=== PATIENT | female | born 1990 | race Caucasian/White ===

== ENCOUNTER 2016-11-26 14:25 | Emergency (ER) | payer MEDICAID ==
[~2016-11-26] VITALS: Ht 170.2 cm; Wt 65.0 kg
[~2016-11-26 14:25] MED LIST: DOXY100T PO; OXCA600 PO; SULF-154 PO; VENL-39; ZIPR1CAP27 PO
[2016-11-26 14:30] VITALS: BP 124/75; PULSE 70; RESP 16; TEMP 98.3; O2SAT 99
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
[2016-11-26] MEDS ORDERED: SODIUM CHLORIDE 0.9% FLUSH 10 ML FLUSH IVF PRN (15:15)
--- NOTE | 2016-11-26 15:52 | RADRPT ---
EXAM DATE/TIME: 11/26/2016 15:15 [facility] COMPARISON: No previous studies available for comparison. INDICATIONS : Cephalgia for one week. RADIATION DOSE: 32.87 CTDIvol (mGy) MEDICAL HISTORY : None SURGICAL HISTORY : temporal lobectomy ENCOUNTER: Initial ACUITY: 1 week PAIN SCALE: 6/10 LOCATION: Bilateral head TECHNIQUE: Multiple contiguous axial images were obtained of the head. Using automated exposure control and adj ustment of the mA and/or kV according to patient size, radiation dose was kept as low as reasonably a chievable to obtain optimal diagnostic quality images. DICOM format image data is available electro nically for review and comparison. FINDINGS: CEREBRUM: Postsurgical features of prior right partial temporal lobectomy. Rosales-white matter differentiation is maintained. The ventricles are normal for age. No evidence of midline shift, mass lesion, hemorrhag e or acute infarction. No extra-axial fluid collections are seen. POSTERIOR FOSSA: The cerebellum and brainstem are intact. The 4th ventricle is midline. The cerebellopontine angle i s unremarkable. EXTRACRANIAL: The visualized portion of the orbits is intact. SKULL: Postsurgical features of prior right parietotemporal craniotomy and temporal craniectomy. CONCLUSION: 1. No acute intracranial normality. 2. Post surgical features consistent with history of prior temporal lobectomy. Brian Child MD on November 26, 2016 at 15:48 Board Certified Radiologist. This report was verified electronically.
--- NOTE | 2016-11-26 16:03 | RADRPT ---
EXAM DATE/TIME: 11/26/2016 15:23 [facility] COMPARISON: No previous studies available for comparison. INDICATIONS : Chest pain. MEDICAL HISTORY : None. SURGICAL HISTORY : None. ENCOUNTER: Initial ACUITY: 1 day PAIN SCORE: 7/10 LOCATION: Bilateral chest FINDINGS: A single view of the chest demonstrates the lungs to be symmetrically aerated without evidence of mas s, infiltrate or effusion. The cardiomediastinal contours are unremarkable. Osseous structures are intact. CONCLUSION: 1. No acute cardiopulmonary disease. Brian Child MD on November 26, 2016 at 16:01 Board Certified Radiologist. This report was verified electronically.
[2016-11-26] MEDS ORDERED: PROCHLORPERAZINE INJ 10 MG/2 ML VIAL IM ONE (16:15)
--- NOTE | 2016-11-26 19:13 | EKG ---
Date Performed: 11/26/2016 Time Performed: 15:46:45 PTAGE: 26 years EKG: SINUS BRADYCARDIA POSSIBLE RIGHT VENTRICULAR CONDUCTION DELAY BORDERLINE ECG PREVIOUS TRACING : 07/21/2001 12.40 No significant change from previous tracing noted. DOCTOR: David Casarez Interpretating Date/Time 11/26/2016 19:12:36
== END 2016-11-26 16:32 | disposition home or self-care (01) ==
LOC: NEPD 14:25
DX: R51 Headache (principal); R07.9 Chest pain, unspecified
CPT/HCPCS: 70450; 71010; 84703; 93005; 96372; 99285; J0780

== ENCOUNTER 2017-04-08 08:42 | Emergency (ER) | payer MEDICAID ==
[~2017-04-08] VITALS: Ht 170.2 cm; Wt 68.0 kg
[2017-04-08 08:45] VITALS: BP 142/92; PULSE 70; RESP 14; TEMP 98; O2SAT 99
[2017-04-08 09:02] VITALS: BP 111/66; PULSE 68; RESP 16; O2SAT 100
[2017-04-08 09:14] VITALS: RESP 16; O2SAT 98
[2017-04-08] MEDS ORDERED: SODIUM CHLORIDE 0.9% FLUSH 10 ML FLUSH IVF PRN (09:15)
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
--- NOTE | 2017-04-08 09:32 | RADRPT ---
EXAM DATE/TIME: 04/08/2017 09:16 [facility] COMPARISON: No previous studies available for comparison. INDICATIONS : Chest pain MEDICAL HISTORY : None. SURGICAL HISTORY : None. ENCOUNTER: Initial ACUITY: 2 days PAIN SCORE: 2/10 LOCATION: Bilateral chest FINDINGS: PA and lateral views of the chest demonstrate the lungs to be symmetrically aerated without evidence of mass, infiltrate or effusion. The cardiomediastinal contours are unremarkable. Osseous structure s are intact. CONCLUSION: Normal examination. Abigail Salmeron MD on April 08, 2017 at 9:29 Board Certified Radiologist. This report was verified electronically.
[2017-04-08 09:44] LABS: AUTOMATED NEUTROPHIL # 2.4 TH/MM3 (1.8-7.7); BASOPHIL # 0.1 TH/MM3 (0-0.2); BASOPHIL % 1.3 % (0.0-2.0); EOSINOPHIL # 0.1 TH/MM3 (0-0.4); EOSINOPHIL % 3.2 % (0.0-4.0); HEMATOCRIT 35.5 % (35.0-46.0); HEMOGLOBIN 12.2 GM/DL (11.6-15.3); LYMPH % 34.6 % (9.0-44.0); LYMPHOCYTE # 1.6 TH/MM3 (1.0-4.8); MEAN CELL VOLUME 87.4 FL (80.0-100.0); MEAN CORPUSCULAR HGB CONC 34.3 % (32.0-36.0); MEAN PLATELET VOLUME 8.4 FL (7.0-11.0); MONO % 8.9 % (0.0-8.0); MONOCYTE # 0.4 TH/MM3 (0-0.9); PLATELET COUNT 188 TH/MM3 (150-450); RED BLOOD COUNT 4.06 MIL/MM3 (4.00-5.30); RED CELL DISTRIBUTION WIDTH 14.1 % (11.6-17.2); WHITE BLOOD COUNT 4.6 TH/MM3 (4.0-11.0)
[2017-04-08 09:54] LABS: PROTHROMBIN TIME - PATIENT 10.6 SEC (9.8-11.6)
[2017-04-08 09:55] LABS: D-DIMER 0.39 MG/L FEU (0.00-0.50)
[2017-04-08 09:59] LABS: ALBUMIN 3.6 GM/DL (3.4-5.0); ALT (GPT) 13 U/L (10-53); AST (GOT) 12 U/L (15-37); BICARBONATE 24.1 MEQ/L (21.0-32.0); BLOOD UREA NITROGEN 10 MG/DL (7-18); CALCIUM 8.5 MG/DL (8.5-10.1); CHLORIDE 108 MEQ/L (98-107); CREATININE 0.77 MG/DL (0.50-1.00); GLOMERULAR FILTRATION RATE 90 ML/MIN (>89); GLUCOSE,RANDOM 87 MG/DL (74-106); SODIUM (NA) 139 MEQ/L (136-145)
[2017-04-08 10:03] LABS: ALKALINE PHOSPHATASE 59 U/L (45-117); TOTAL BILIRUBIN ADULT 0.7 MG/DL (0.2-1.0); TOTAL PROTEIN 6.9 GM/DL (6.4-8.2); TROPONIN I LESS THAN 0.02 NG/ML (0.02-0.05)
[2017-04-08] MEDS ORDERED: SODIUM CHLOR 0.9% 1000 ML INJ 1,000 ML IV ONE (12:15)
[2017-04-08 13:27] VITALS: BP 112/68
--- NOTE | 2017-04-09 19:03 | EKG ---
Date Performed: 04/08/2017 Time Performed: 08:58:10 PTAGE: 27 years EKG: SINUS BRADYCARDIA Since previous tracing, no significant change noted BORDERLINE ECG PREVIOUS TRACING : 12/13/1995 19.34 DOCTOR: Phil Shine Interpretating Date/Time 04/09/2017 19:01:40
== END 2017-04-08 13:29 | disposition home or self-care (01) ==
LOC: NEPC 08:42
DX: R07.89 Other chest pain (principal); R06.02 Shortness of breath; R00.1 Bradycardia, unspecified
CPT/HCPCS: 71046; 80053; 80307; 82550; 83735; 84484; 85025; 85379; 85610; 85730; 93005; 99285